=== PATIENT | male | born 1935 | race African-American/Black ===

== ENCOUNTER 2017-11-04 11:52 | Inpatient (IN) | payer MEDICARE, OTHER ==
[~2017-11-04] VITALS: Ht 177.8 cm; Wt 78.8 kg
[~2017-11-04 11:52] MED LIST: AMLO10TA2 PO; AMLO5TAB2 PO; AMPI250C3 PO; BIMA2.5D EACHEYE; CAPT1TAB7 PO; CAPT25TA3 PO; CARV12.52 PO; CEFU250T66 PO; LEVE500T53 PO; LEVO75TA5 PO; LISI-170 PO; PHEN-582 PO; POLY17PO5 PO; TAMS-11 PO; TIMO5DRO5 EACHEYE
[2017-11-04] MEDS ORDERED: POTA20TA89 PO (12:18)
[2017-11-04] MEDS ORDERED: FURO20TA3 PO (12:18)
[2017-11-04 12:26] LABS: BASOPHILS # (AUTO) 0.01 x10^3/uL (0-0.1); BASOPHILS % (AUTO) 0 % (0-1); EOSINOPHILS # (AUTO) 0.06 x10^3/uL (0-0.4); EOSINOPHILS % (AUTO) 1 % (1-7); LYMPHOCYTES # (AUTO) 1.27 x10^3/uL (1-3.4); LYMPHOCYTES % (AUTO) 22 % (22-44); MD NO; MEAN CORPUSCULAR HEMOGLOBIN 27.4 pg (27.5-34.5); MEAN CORPUSCULAR HGB CONC 32.3 g/dL (33.2-36.2); MEAN CORPUSCULAR VOLUME 84.9 fL (81-97); MEAN PLATELET VOLUME 7.5 fL (7.4-10.4); MONOCYTES # (AUTO) 0.34 x10^3/uL (0.2-0.8); MONOCYTES % (AUTO) 6 % (2-9); NEUTROPHILS # (AUTO) 4.02 x10^3/uL (1.8-6.8); NEUTROPHILS % (AUTO) 71 % (42-75); PLATELET COUNT 240 x10^3/uL (130-400); RED BLOOD COUNT 5.06 x10^6/uL (4.38-5.82); RED CELL DISTRIBUTION WIDTH 15.4 % (9.4-14.8)
[2017-11-04 12:32] LABS: INTERNATIONAL NORMALIZED RATIO 0.98 (0.93-1.1); PROTHROMBIN TIME 10.1 Seconds (9.6-11.5)
[2017-11-04 12:36] LABS: CHLORIDE 103 mmol/L (98-107)
[2017-11-04 12:45] LABS: ALANINE AMINOTRANSFERASE 27 U/L (12-78); ALKALINE PHOSPHATASE 93 U/L (45-117); ANION GAP 8 mmol/L (5-15); BILIRUBIN,TOTAL 0.8 mg/dL (0.2-1.0); CALCIUM 9.2 mg/dL (8.5-10.1); CREATININE 1.17 mg/dL (0.7-1.3); TOTAL PROTEIN 8.3 g/dL (6.4-8.2); TROPONIN I < 0.015 ng/mL (0.000-0.045)
[2017-11-04] MEDS ORDERED: SODIUM CHLORIDE FLUSH 10ML SYR IVF PRN (13:30)
[2017-11-04 14:51] VITALS: BP 156/78
[2017-11-04] MEDS ORDERED: hydrALAzine 20 MG/ML, 1ML IV PRN (15:00)
[2017-11-04] MEDS ORDERED: ASPIRIN 300 MG SUPP PR ONE (15:00)
[2017-11-04 15:31] LABS: TROPONIN I < 0.015 ng/mL (0.000-0.045)
[2017-11-04] MEDS: SODIUM CHLORIDE 0.9% 1,000 ML IV SCH (16:00)
[2017-11-04] MEDS ORDERED: GADOBUTROL 10 MMOL/10 ML PFS ONE (16:18)
[2017-11-04] MEDS: HEPARIN 5,000 UNITS/ML, 1ML SQ SCH ×2 (17:07→23:40)
[2017-11-04] MEDS: LEVETIRACETAM 500 MG TABLET PO SCH ×2 (17:14→21:02)
[2017-11-04 20:00] VITALS: BP 149/89
[2017-11-04 20:59] LABS: TROPONIN I < 0.015 ng/mL (0.000-0.045)
[2017-11-05 02:00] VITALS: BP 165/88
[2017-11-05] MEDS: SODIUM CHLORIDE 0.9% 1,000 ML IV SCH ×2 (05:20→15:03)
[2017-11-05 05:31] LABS: BASOPHILS # (AUTO) 0.03 x10^3/uL (0-0.1); BASOPHILS % (AUTO) 0 % (0-1); EOSINOPHILS # (AUTO) 0.09 x10^3/uL (0-0.4); EOSINOPHILS % (AUTO) 2 % (1-7); LYMPHOCYTES % (AUTO) 32 % (22-44); MD NO; MEAN CORPUSCULAR HEMOGLOBIN 27.4 pg (27.5-34.5); MEAN CORPUSCULAR HGB CONC 32.6 g/dL (33.2-36.2); MEAN PLATELET VOLUME 7.4 fL (7.4-10.4); MONOCYTES # (AUTO) 0.69 x10^3/uL (0.2-0.8); MONOCYTES % (AUTO) 11 % (2-9); NEUTROPHILS # (AUTO) 3.34 x10^3/uL (1.8-6.8); NEUTROPHILS % (AUTO) 55 % (42-75); PLATELET COUNT 205 x10^3/uL (130-400); RED BLOOD COUNT 4.47 x10^6/uL (4.38-5.82); RED CELL DISTRIBUTION WIDTH 15.1 % (9.4-14.8)
[2017-11-05 05:33] LABS: CHLORIDE 108 mmol/L (98-107)
[2017-11-05 05:50] LABS: ALANINE AMINOTRANSFERASE 22 U/L (12-78); ALKALINE PHOSPHATASE 71 U/L (45-117); ANION GAP 8 mmol/L (5-15); BILIRUBIN,TOTAL 0.8 mg/dL (0.2-1.0); CALCIUM 8.3 mg/dL (8.5-10.1); CHOL/HDL RATIO 2.5; CHOLESTEROL, TOTAL 143 mg/dL (140-239); CREATININE 1.02 mg/dL (0.7-1.3); HDL CHOL % 41 % (26-37); HDL CHOLESTEROL (DIRECT) 58 mg/dL (40-60); LDL CHOLESTEROL,CALCULATED 72 mg/dL (54-169); LDL/HDL RATIO 1.2 (0.5-3.0); TOTAL PROTEIN 6.6 g/dL (6.4-8.2); TRIGLYCERIDES 64 mg/dL (50-200); VLDL CHOLESTEROL 13 mg/dL (0-25)
[2017-11-05 06:32] LABS: HEMOGLOBIN A1C 7.2 % (4.2-6.3)
[2017-11-05 06:48] VITALS: BP 153/81
[2017-11-05] MEDS: LEVOTHYROXINE 100 MCG INJ IVPush SCH (08:15)
[2017-11-05] MEDS: HEPARIN 5,000 UNITS/ML, 1ML SQ SCH ×2 (08:16→16:45)
[2017-11-05] MEDS: LEVETIRACETAM 500 MG TABLET PO SCH ×2 (08:16→20:05)
[2017-11-05] MEDS: INSULIN LISPRO 100 UNITS/ML, PEN SQ-INSULIN SCH ×3 (11:00→20:05)
[2017-11-05 12:47] VITALS: BP 143/71
[2017-11-05 19:55] VITALS: BP 145/77
[2017-11-06] MEDS: HEPARIN 5,000 UNITS/ML, 1ML SQ SCH ×2 (00:08→08:49)
[2017-11-06] MEDS: SODIUM CHLORIDE 0.9% 1,000 ML IV SCH (02:45)
[2017-11-06 03:26] VITALS: BP 164/75
[2017-11-06] MEDS: INSULIN LISPRO 100 UNITS/ML, PEN SQ-INSULIN SCH ×2 (07:00→11:00)
[2017-11-06] MEDS: LEVETIRACETAM 500 MG TABLET PO SCH (08:50)
[2017-11-06] MEDS: LEVOTHYROXINE 100 MCG INJ IVPush SCH (09:12)
[2017-11-06] MEDS ORDERED: LEVE500T53 PO (13:47)
[2017-11-06 14:59] VITALS: BP 156/70
== END 2017-11-06 17:06 | disposition home or self-care (01) | DRG 100 ==
LOC: ED 12:21 → EDIP 13:26 → 4EST 14:52
PROVIDERS: ADMIT Hospitalist; ATTEND Hospitalist
DX: G40.209 Localization-related (focal) (partial) symptomatic epilepsy and epileptic syndromes with complex partial seizures, not intractable, without status epilepticus (principal); G93.41 Metabolic encephalopathy; E85.4 Organ-limited amyloidosis; I27.20 Pulmonary hypertension, unspecified; R41.4 Neurologic neglect syndrome; R47.01 Aphasia; E11.9 Type 2 diabetes mellitus without complications; I11.9 Hypertensive heart disease without heart failure; E03.9 Hypothyroidism, unspecified; I35.1 Nonrheumatic aortic (valve) insufficiency; I44.7 Left bundle-branch block, unspecified; G83.84 Todd's paralysis (postepileptic); N40.0 Benign prostatic hyperplasia without lower urinary tract symptoms; I68.0 Cerebral amyloid angiopathy; Z79.84 Long term (current) use of oral hypoglycemic drugs; Z83.3 Family history of diabetes mellitus; Z79.899 Other long term (current) drug therapy; Z86.73 Personal history of transient ischemic attack (TIA), and cerebral infarction without residual deficits; Z91.14 Patient's other noncompliance with medication regimen; Z91.19 Patient's noncompliance with other medical treatment and regimen
CPT/HCPCS: 36415; 70450; 70553; 71045; 80047; 80053; 80061; 80177; 82962; 83036; 83880; 84443; 84484; 85025; 85610; 85730; 93005; 93306; 99291; A9585; J1644; J2785; J7030

== ENCOUNTER → 2017-11-19 | Outpatient (CLI) | payer MEDICARE, OTHER ==
[~2017-11-19] MED LIST changes: +FURO20TA3 PO; +POTA20TA89 PO
== END | disposition home or self-care (01) ==
LOC: CVU 13:27
PROVIDERS: ATTEND Internal Medicine Cardiovascular Disease
DX: R60.9 Edema, unspecified (principal); I82.611 Acute embolism and thrombosis of superficial veins of right upper extremity
CPT/HCPCS: 93970

== ENCOUNTER → 2017-11-25 | Outpatient (CLI) | payer MEDICARE, OTHER | LOC: RAD 07:54 | PROVIDERS: ATTEND Internal Medicine Cardiovascular Disease | DX: Z02.9 Encounter for administrative examinations, unspecified (principal) ==

== ENCOUNTER → 2017-12-05 | Outpatient (CLI) | payer MEDICARE, OTHER ==
[~2017-12-05] MED LIST changes: +REGADENOSON 0.4 MG/5 ML SYRINGE ONE
== END | disposition home or self-care (01) ==
LOC: RAD 07:53
PROVIDERS: ATTEND Internal Medicine Cardiovascular Disease
DX: I44.0 Atrioventricular block, first degree (principal); I25.2 Old myocardial infarction
CPT/HCPCS: 78452; 93017; A9502; J2785